=== PATIENT | male | born 1995 | race Caucasian/White ===

== ENCOUNTER 2020-11-17 20:26 | Emergency (ER) | payer OTHER ==
[2020-11-17 21:09] LABS: HEMOGLOBIN 15.1 gm/dl (14.0-17.5); RED BLOOD COUNT 4.94 M/UL (4.20-5.50); WHITE BLOOD COUNT 12.7 K/UL (4.5-11.0)
[2020-11-17 21:32] LABS: BUN/CREATININE RATIO 13 (0-10)
== END 2020-11-17 22:00 | disposition home or self-care (01) ==
LOC: ER1 20:26
PROVIDERS: Emergency Medicine
DX: R07.89 Other chest pain (principal); I10 Essential (primary) hypertension
CPT/HCPCS: 71046; 80053; 82550; 82553; 83874; 84484; 85025; 93005; 99285

== ENCOUNTER 2021-01-07 20:17 | Emergency (ER) | payer OTHER | END 2021-01-07 22:13 | disposition home or self-care (01) | LOC: ER1 20:17 | DX: R07.89 Other chest pain (principal); I11.9 Hypertensive heart disease without heart failure; Z90.89 Acquired absence of other organs; Z88.0 Allergy status to penicillin | CPT/HCPCS: 71045; 93005; 99285 ==